=== PATIENT | female | born 1980 | race Hispanic/Latino ===

== ENCOUNTER 2017-02-05 01:11 | Emergency (ER) | payer OTHER ==
[2017-02-05 01:11] VITALS: BMI 39.0
--- NOTE | 2017-02-05 02:26 | ED PDOC ---
Arrival/HPI - General Time Seen by Provider: 02/05/17 02:02 Historian: Patient - History of Present Illness Narrative History of Present Illness (Text): 02/05/17 02:01 36 year old female patient to the Emergency department with left ankle pain, worsened with movement tonight. Patient states that she twisted her left ankle as she stepped out of a car. The patient denies weakness/numbness/tingling in the extremity, shortness of breath, chest pain, abdominal pain, nausea, vomiting , diarrhea, or any other complaint. Time/Duration: Prior to Arrival Symptom Course: Unchanged Quality: Aching Context: Walking, Street Past Medical History - Provider Review Nursing Documentation Reviewed: Yes - Tetanus Immunization Tetanus Immunization: Unknown - Cardiac Hx Cardiac Disorders: No - Endocrine/Metabolic Hx Endocrine Disorders: Yes Hx Hypothyroidism: Yes - Psychiatric Hx Depression: No Hx Emotional Abuse: No Hx Physical Abuse: No Hx Substance Use: No - Surgical History Hx Section: Yes (x1) - Anesthesia Hx Anesthesia: Yes Hx Anesthesia Reactions: No Hx Malignant Hyperthermia: No - Suicidal Assessment Feels Threatened In Home Enviroment: No Family/Social History - Physician Review Nursing Documentation Reviewed: Yes Family/Social History: No Known Family HX, Unknown Family HX Smoking Status: Never Smoked Hx Alcohol Use: Yes Hx Substance Use: No Hx Substance Use Treatment: No Allergies/Home Meds Allergies/Adverse Reactions: Allergies darvocet Allergy (Severe, Uncoded 02/05/17 02:50) RASH Home Medications: Home Meds Medication Instructions Recorded Confirmed No Known Home Med 02/05/17 02/05/17 Review of Systems - Physician Review All systems were reviewed & negative as marked: Yes - Review of Systems Constitutional: Normal. absent: Fevers Respiratory: Normal. absent: SOB Cardiovascular: Normal. absent: Chest Pain Gastrointestinal: Normal. absent: Abdominal Pain, Diarrhea, Nausea, Vomiting Musculoskeletal: Other (+left ankle pain) Neurological: absent: Headache, Dizziness Physical Exam Vital Signs Reviewed: Yes Vital Signs Temp Pulse Resp BP Pulse Ox 02/05/17 07:11 98.1 F 71 18 123/67 97 02/05/17 04:12 97.9 F 83 17 132/84 97 02/05/17 02:00 98.3 F 91 H 17 146/89 97 Temperature: Afebrile Blood Pressure: Normal Pulse: Regular Respiratory Rate: Normal Appearance: Positive for: Well-Appearing Pain Distress: None Mental Status: Positive for: Alert and Oriented X 3 - Systems Exam Head: Present: Atraumatic, Normocephalic Pupils: Present: PERRL Extroacular Muscles: Present: EOMI Conjunctiva: Present: Normal Mouth: Present: Moist Mucous Membranes Neck: Present: Normal Range of Motion Respiratory/Chest: Present: Clear to Auscultation, Good Air Exchange. No: Respiratory Distress, Accessory Muscle Use Cardiovascular: Present: Regular Rate and Rhythm, Normal S1, S2. No: Murmurs Abdomen: Present: Normal Bowel Sounds. No: Tenderness, Distention, Peritoneal Signs Back: Present: Normal Inspection Upper Extremity: Present: Normal Inspection. No: Cyanosis, Edema Lower Extremity: Present: NORMAL PULSES, Normal ROM, Tenderness (Left ankle tenderness), Swelling (left ankle swelling), Neurovascularly Intact, Capillary Refill < 2 s. No: Edema Neurological: Present: GCS=15, CN II-XII Intact, Speech Normal, Motor Func Grossly Intact, Normal Sensory Function Skin: Present: Warm, Dry, Normal Color. No: Rashes Psychiatric: Present: Alert, Oriented x 3, Normal Insight, Normal Concentration Medical Decision Making ED Course and Treatment: 02/05/17 02:30 Impression: 36 year old patient with left ankle pain, worse with movement. Differential Diagnosis included but are not limited to: fracture vs. sprain Plan: -- Ibuprofen -- XR Left Ankle -- XR Left Foot Progress Notes: 02/05/17 03:14 Reviewed radiology, XR left ankle and foot shows fracture of the lateral malleolus and distal fibula. Will order CT of the left lower extremity. 02/05/17 04:[address] Fam, orthopedist equipment operation instructor,who states will come to ED to evaluate pt. 02/05/17 05:24 CT Left Lower Extremity: FINDINGS: Bones/joints: Fracture of the medial malleolus. Disruption of ankle mortise, widening of the medial ankle mortise. Mild displaced fracture of the distal fibula with anterior angulation. Minimally displaced fracture of the posterior lip of the distal tibial metaphysis. No dislocation. Soft tissues: Moderate soft tissue swelling. IMPRESSION: Fracture of the medial malleolus. Mildly displaced fracture of the distal fibula with anterior angulation. Minimally displaced fracture of the posterior lip of the distal tibial metaphysis. Disruption of ankle mortise, widening of the medial ankle mortise. Dictated and Authenticated by: Mary Walker MD 02/05/17 04:[address] Fam, orthopedist equipment operation instructor, who is aware and agrees with plan. States he will come in to see pt. 02/05/17 05:[address] Fam, present in ED to evaluate pt. States pt will require surgery. Requests pt be admitted to hospitalist service. EKG, Labs ordered. 02/05/17 06:26 Case discussed with house doctor, pt will be admitted to hospitalist service as per orthopedist. 02/05/17 06:29 Pt to refusing to undergo surgery and admission to the hospital. Risks explained to pt due to severity of ankle fracture by myself and . Pt states she would prefer splint placement and follow-up outpatient with her own doctor. Pt will sign out against medical advice. This patient is choosing to leave against medical advice. I have personally explained to the patient that choosing to do so may result in permanent bodily harm or . I have discussed at great length that without further evaluation and monitoring there may be unforeseen circumstances and/or deterioration causing permanent bodily harm or as a result of their choice. The patient is alert, oriented, and shows the mental capacity to make clear decisions regarding the patients health care at this time. The patient continues to wish to leave against medical advice. In light of the patients decision to leave AMA, patient is aware of the importance of following up as instructed. The patient has been advised that they should return to the ED immediately if they change their mind at any time, or if their condition begins to change or worsen in any way. - RAD Interpretation Radiology Orders: 02/05/17 02:10 ANKLE LEFT 3 VIEWS ROUTINE [RAD] Stat 02/05/17 02:11 FOOT LEFT 3 VIEWS ROUTINE [RAD] Stat 02/05/17 03:14 EXT LOWER W/O CONTRAST LEFT [CT] Stat Administrative Project Coordinator: ED Physician, Radiologist - Medication Orders Current Medication Orders: Discontinued Medications Sodium Chloride (Sodium Chloride 0.9%) 1,000 mls @ 100 mls/hr IV .Q10H MONTSE Last Admin: 02/05/17 06:49 Dose: Ibuprofen (Motrin Tab) 600 mg PO STAT STA Stop: 02/05/17 02:13 Last Admin: 02/05/17 03:23 Dose: 600 mg Ibuprofen (Motrin Tab) 400 mg PO STAT STA Stop: 02/05/17 06:04 Last Admin: 02/05/17 06:48 Dose: 400 mg Oxycodone/Acetaminophen (Percocet 5/325 Mg Tab) 1 tab PO STAT STA Stop: 02/05/17 03:43 Last Admin: 02/05/17 04:22 Dose: - Scribe Statement Bonnie Cassidy under the supervision of Nayeli Rich. Disposition/Present on Arrival - Present on Arrival Any Indicators Present on Arrival: No History of DVT/PE: No History of Uncontrolled Diabetes: No Urinary Catheter: No History of Decub. Ulcer: No History Surgical Site Infection Following: None - Disposition Have Diagnosis and Disposition been Completed?: Yes Diagnosis: Closed trimalleolar fracture of ankle Disposition: AGAINST MEDICAL ADVICE Disposition Time: 06:26 Patient Plan: Admission Condition: STABLE
[2017-02-05 02:51] VITALS: O2SAT 97
[2017-02-05] MEDS ORDERED: Oxycodone/Acetaminophen 5/325 mg Tab PO STA (03:42)
[2017-02-05] MEDS ORDERED: Sodium Chloride 0.9% 1,000 ML IV SCH (06:30)
[2017-02-05 07:12] VITALS: BP 123/67; PULSE 71; RESP 18; TEMP 98.1
--- NOTE | 2017-02-05 09:44 | RAD ---
PROCEDURE: Left Ankle Radiographs. HISTORY: injury COMPARISON: Comparison made with concurrent radiographs of the left foot FINDINGS: BONES: Displaced fracture of the posterior aspect medial malleolus as well as linear/oblique fracture traversing the distal shaft of the fibula. Widening of the medial margin of the ankle mortise. Talar dome intact. Overlying soft tissue swelling. JOINTS: As above SOFT TISSUES: As above OTHER FINDINGS: None. IMPRESSION: Displaced fracture of the posterior aspect medial malleolus as well as linear/oblique fracture traversing the distal shaft of the fibula. Widening of the medial margin of the ankle mortise. Overlying soft tissue swelling.
--- NOTE | 2017-02-05 09:51 | RAD ---
PROCEDURE: Left Foot Radiographs. HISTORY: injury COMPARISON: Comparison made with concurrent radiographs of the left ankle FINDINGS: BONES: Re- demonstrated are fractures of the posteromedial aspect of the distal tibia and oblique fracture traversing the distal shaft of the fibula. Surrounding soft tissue swelling JOINTS: Mild widening of the medial aspect of the ankle mortise is less well appreciated on this study compared to dedicated ankle radiographs Mild hallux valgus deformity with mild DJD 1st MTP joint SOFT TISSUES: As above OTHER FINDINGS: None. IMPRESSION: Fractures of the medial malleolus and distal fibula with surrounding soft tissue swelling
--- NOTE | 2017-02-05 14:49 | CT ---
PROCEDURE: CT of the Left ankle dated 02/05/2017 HISTORY: Left ankle injury COMPARISON: Comparison made with radiographs left ankle obtained earlier same day. TECHNIQUE: Contiguous helical/transaxial images of the left hip were obtained. Coronal and sagittal reformats were generated. This CT exam was performed using one or more of the following dose reduction techniques: Automated exposure control, adjustment of the mA and/or kV according to patient size, and/or use of iterative reconstruction technique. Radiation dose. Total DLP = 198.50 mGy-cm. FINDINGS: Findings: The current study re- demonstrates and inferiorly displaced fracture of the inferior tip of the medial malleolus as well as the posterior aspect of the distal tibia. There is widening of the medial aspect of the ankle mortise. In addition, there is a mildly displaced oblique/diagonal fracture traversing the distal shaft left fibula with anterior angulation of the proximal aspect distal fibular fragment. . . Surrounding soft tissue swelling. No other fractures are identified. Impression: Fractures of the medial and posterior malleolus of with disruption -widening of the medial aspect of the ankle mortise. There is also an oblique/diagonal fracture traversing the distal shaft of the fibula with anterior displacement of the proximal aspect distal fibular fragment. Surrounding soft tissue swelling. Tiny Preliminary report provided by overnight radiology service.
--- NOTE | 2017-02-06 09:04 | CON ---
DATE: 02/05/2017 The patient came to the emergency room at approximately 1:00 a.m. today. I saw her at about 5:30 a.m. She had an x-ray already and has a displaced trimalleolar fracture of the left ankle, significant displacement with a widened mortise, oblique tibial fracture and transverse medial malleolar fracture that will definitely need ORIF with a plate and screws. We have put her in a posterior splint and expecting her to go to surgery as soon as possible to avoid tremendous swelling, but it turned out that the patient wants to sign out AMA and seek other ways of getting her ankle fixed and stabilized and we will put her on a splint. I have told her she should elevate it*------* and go for a second opinion and get the surgery as soon as possible before it swells much; otherwise, she would have to get external fixator before they do a formal ORIF. *------* then give her crutches and instructions to elevate leg and no weightbearing. Robbie Fam DO
== END 2017-02-05 07:20 | disposition left against medical advice (07) ==
LOC: ED 01:11 → ERH 06:18 → UNDOADMIN 06:18 → ED 07:20
DX: S82.852A Displaced trimalleolar fracture of left lower leg, initial encounter for closed fracture (principal); X50.0XXA Overexertion from strenuous movement or load, initial encounter; Y93.89 Activity, other specified; Y92.89 Other specified places as the place of occurrence of the external cause